=== PATIENT | female | born 1975 | race Hispanic/Latino ===

== ENCOUNTER 2017-07-13 15:50 | Emergency (ER) | payer SELFPAY ==
[2017-07-13] MEDS ORDERED: FAMOTIDINE 20MG TAB 20 MG TAB ONE (16:15)
[2017-07-13] MEDS ORDERED: HYOSCYAMINE SULFATE 0.125 MG TAB.SUBL SL ONE (16:15)
[2017-07-13 16:26] LABS: APPEARANCE,URINE Clear (CLEAR); BILIRUBIN,URINE Negative (NEGATIVE); COLOR,URINE Yellow (YELLOW); GLUCOSE, URINE (UA) Negative (NEGATIVE); KETONES,URINE Negative (NEGATIVE); LEUKOCYTE ESTERASE ,URINE Moderate (NEGATIVE); NITRATE,URINE Negative (NEGATIVE); OCCULT BLOOD,URINE Trace (NEGATIVE); PH,URINE 6.5 (5.0-8.0); PROTEIN,URINE Negative (NEGATIVE)
[2017-07-13 16:34] LABS: HCG,QUAL RESULT NEGATIVE (NEGATIVE)
[2017-07-13 16:41] LABS: BASOPHILS % (AUTO) 0.3 % (0.0-5.0); EOSINOPHILS % (AUTO) 1.4 % (0.0-8.0); HEMATOCRIT 38.7 % (36-48); LYMPHOCYTES % (AUTO) 31.9 % (21.0-51.0); MEAN CORPUSCULAR HEMOGLOBIN 31.3 pg (27.0-33.0); MEAN CORPUSCULAR HGB CONC 34.1 g/dL (32.0-36.0); MEAN CORPUSCULAR VOLUME 91.6 fL (79-99); MONOCYTES % (AUTO) 6.2 % (3.0-13.0); NEUTROPHILS % (AUTO) 60.2 % (40.0-77.0); PLATELET COUNT (AUTO) 335 K/uL (130-400); RED BLOOD CELL COUNT(AUTO) 4.23 MIL/uL (4.00-5.50); RED CELL DISTRIBUTION WIDTH 13.9 % (11.0-15.5); WHITE BLOOD COUNT (AUTO) 10.5 K/uL (4.8-10.8)
[2017-07-13 16:58] LABS: BACTERIA,URINE Few /HPF (None Seen); MUCUS,URINE Few LPF (None Seen); SQUAMOUS EPITHELIAL CELL,UR Few /LPF (0-2)
[2017-07-13 17:14] LABS: CREATININE 0.8 mg/dL (0.5-1.5); POTASSIUM 3.6 mmol/L (3.5-5.1)
[2017-07-13 17:19] LABS: ALBUMIN 3.3 g/dL (3.5-5.0); BILIRUBIN,TOTAL 0.2 mg/dL (0.2-1.0); TOTAL PROTEIN, SERUM 7.6 g/dL (6.0-8.3)
== END 2017-07-13 17:41 | disposition home or self-care (01) ==
LOC: EDH 15:50
DX: K29.70 Gastritis, unspecified, without bleeding (principal); Z72.0 Tobacco use; Z90.49 Acquired absence of other specified parts of digestive tract
CPT/HCPCS: 36415; 80053; 81001; 81025; 83690; 85025

== ENCOUNTER 2018-11-04 17:45 | Emergency (ER) | payer OTHER ==
[2018-11-04 18:47] LABS: BASOPHILS % (AUTO) 0.5 % (0.0-5.0); EOSINOPHILS % (AUTO) 0.6 % (0.0-8.0); HEMATOCRIT 40.3 % (36-48); LYMPHOCYTES % (AUTO) 22.3 % (21.0-51.0); MEAN CORPUSCULAR HEMOGLOBIN 31.9 pg (27.0-33.0); MEAN CORPUSCULAR HGB CONC 33.8 g/dL (32.0-36.0); MEAN CORPUSCULAR VOLUME 94.2 fL (79-99); MONOCYTES % (AUTO) 6.6 % (3.0-13.0); PLATELET COUNT (AUTO) 295 K/uL (130-400); RED BLOOD CELL COUNT(AUTO) 4.27 MIL/uL (4.00-5.50); RED CELL DISTRIBUTION WIDTH 13.3 % (11.0-15.5); WHITE BLOOD COUNT (AUTO) 11.2 K/uL (4.8-10.8)
[2018-11-04 18:55] LABS: CREATININE 0.7 mg/dL (0.5-1.5); POTASSIUM 3.4 mmol/L (3.5-5.1)
[2018-11-04 19:00] LABS: ALBUMIN 3.5 g/dL (3.5-5.0); BILIRUBIN,TOTAL 0.4 mg/dL (0.2-1.0); TOTAL PROTEIN, SERUM 7.4 g/dL (6.0-8.3)
[2018-11-04] MEDS ORDERED: FAMOTIDINE/PF 20 MG/2 ML VIAL IV ONE (19:00)
[2018-11-04] MEDS ORDERED: ONDANSETRON HCL 4 MG/2 ML VIAL ONE (19:00)
[2018-11-04] MEDS ORDERED: SODIUM CHLORIDE 0.9% 1000ML 1,000 ML IV ONE (19:00)
== END 2018-11-04 20:20 | disposition home or self-care (01) ==
LOC: EDH 17:45
DX: K21.9 Gastro-esophageal reflux disease without esophagitis (principal); Z90.49 Acquired absence of other specified parts of digestive tract; Z72.0 Tobacco use
CPT/HCPCS: 36415; 80053; 83690; 84484; 85025; 93005; 96374; 96375; 99285; J2405; J3490; J7030

== ENCOUNTER 2022-08-27 05:34 | Observation (INO) | payer OTHER ==
[2022-08-23 13:40] LABS: BASOPHILS % (AUTO) 0.6 % (0.0-5.0); EOSINOPHILS % (AUTO) 1.7 % (0.0-8.0); HEMATOCRIT 40.9 % (36-48); LYMPHOCYTES % (AUTO) 26.4 % (21.0-51.0); MEAN CORPUSCULAR HEMOGLOBIN 30.4 pg (27.0-33.0); MEAN CORPUSCULAR HGB CONC 32.5 g/dL (32.0-36.0); MEAN CORPUSCULAR VOLUME 93.6 fL (79-99); NEUTROPHILS % (AUTO) 64.9 % (40.0-77.0); PLATELET COUNT (AUTO) 349 K/uL (130-400); RED BLOOD CELL COUNT(AUTO) 4.37 MIL/uL (4.00-5.50); RED CELL DISTRIBUTION WIDTH 12.9 % (11.0-15.5); WHITE BLOOD COUNT (AUTO) 10.3 K/uL (4.8-10.8)
[2022-08-23 14:00] LABS: APPEARANCE,URINE CLOUDY (CLEAR); BILIRUBIN,URINE NEGATIVE (NEGATIVE); COLOR,URINE LIGHT-YELLOW (YELLOW); GLUCOSE, URINE (UA) NEGATIVE (NEGATIVE); KETONES,URINE NEGATIVE (NEGATIVE); LEUKOCYTE ESTERASE ,URINE NEGATIVE Leu/uL (NEGATIVE); NITRATE,URINE NEGATIVE (NEGATIVE); OCCULT BLOOD,URINE NEGATIVE (NEGATIVE); PH,URINE 7.5 (5.0-8.0); PROTEIN,URINE NEGATIVE (NEGATIVE); UROBILINOGEN,URINE 0.2 mg/dL (0.2-1.0)
[2022-08-23 14:04] LABS: BACTERIA,URINE RARE /HPF (None Seen); MUCUS,URINE RARE LPF (None Seen); SQUAMOUS EPITHELIAL CELL,UR FEW /HPF (0-2)
[2022-08-23 18:00] VITALS: BP 119/68
[2022-08-27] VITALS (26 sets, daily range): BP systolic 103–148; BP diastolic 60–89
[~2022-08-27] VITALS: Ht 154.9 cm; Wt 71.8 kg
[2022-08-27] MEDS ORDERED: LACTATED RINGERS 1000ML 1,000 ML IV ONE (05:55)
[2022-08-27] MEDS ORDERED: CEFAZOLIN SODIUM 2 GM VIAL ONE (06:10)
[2022-08-27] MEDS ORDERED: MIDAZOLAM HCL 1 MG/ML 2ML VIAL ONE ×2 (07:04→10:02)
[2022-08-27] MEDS ORDERED: SUCCINYLCHOLINE 200MG/10ML SYR ONE (07:04)
[2022-08-27] MEDS ORDERED: PROPOFOL 10 MG/ML 20ML VIAL IV ONE (07:04)
[2022-08-27] MEDS ORDERED: ROCURONIUM 10MG/1ML SYR 10 MG/ML ML ONE (07:05)
[2022-08-27] MEDS ORDERED: FENTANYL CITRATE PF 50 MCG/1 ML 2ML VIAL ONE (07:05)
[2022-08-27] MEDS ORDERED: CEFAZOLIN SODIUM 2 GM VIAL IVPB ONE (07:15)
[2022-08-27] MEDS ORDERED: NEOSTIGMINE 5MG/5ML SYR IV ONE (09:36)
[2022-08-27] MEDS ORDERED: GLYCOPYRROLATE 1 MG/5 ML SYRINGE ONE (09:36)
[2022-08-27] MEDS ORDERED: MEPERIDINE-PF 25 MG/ML SYG ONE ×3 (09:58→10:57)
[2022-08-27] MEDS ORDERED: ONDANSETRON 4MG INJ ONE (09:58)
[2022-08-27] MEDS ORDERED: KETOROLAC 30MG VIAL (30MG/ML) ONE (10:50)
[2022-08-27] MEDS ORDERED: PROMETHAZINE HCL 25 MG/ML 1ML AMPULE IM ONE (10:58)
[2022-08-27] MEDS ORDERED: ACETAMINOPHEN WITH CODEINE 1 TAB TAB PO PRN (12:30)
[2022-08-27] MEDS ORDERED: IBUPROFEN 600 MG TABLET PO PRN ×2 (12:30→12:45)
[2022-08-27] MEDS ORDERED: MEPERIDINE-PF 75 MG/ML SYG IM PRN ×2 (12:30→12:45)
[2022-08-27] MEDS ORDERED: SIMETHICONE 80 MG TAB.CHEW PO PRN ×2 (12:30→12:45)
[2022-08-27] MEDS ORDERED: PROMETHAZINE HCL 25 MG/ML 1ML AMPULE IM PRN ×4 (12:30→12:45)
[2022-08-27] MEDS ORDERED: DOCUSATE SODIUM 100 MG CAP PO PRN ×2 (12:30→12:45)
[2022-08-27] MEDS ORDERED: ONDANSETRON 4MG INJ IVP PRN ×2 (12:30→12:45)
[2022-08-27] MEDS ORDERED: BISACODYL 10 MG SUPP.RECT RC PRN ×2 (12:30→12:45)
[2022-08-27] MEDS ORDERED: DEXTROSE 5 %-0.45 % NACL 1,000 ML IV PRN (12:30)
[2022-08-27] MEDS: ACETAMINOPHEN WITH CODEINE 1 TAB TAB PO PRN (18:19)
[2022-08-27] MEDS: DEXTROSE 5 %-0.45 % NACL 1,000 ML IV PRN (18:19)
[2022-08-28] MEDS: DEXTROSE 5 %-0.45 % NACL 1,000 ML IV PRN (00:44)
[2022-08-28] MEDS ORDERED: IBUPROFEN 800 MG TAB PO PRN (02:00)
[2022-08-28] MEDS ORDERED: HYDROCODONE/ACETAMINOPHEN 5/325 MG TAB PO PRN (02:00)
[2022-08-28] MEDS ORDERED: ACETAMINOPHEN WITH CODEINE 1 TAB TAB PO PRN (02:00)
[2022-08-28 02:57] VITALS: BP 97/58
[2022-08-28] MEDS: ACETAMINOPHEN WITH CODEINE 1 TAB TAB PO PRN (05:57)
[2022-08-28 06:32] LABS: MEAN CORPUSCULAR HEMOGLOBIN 30.1 pg (27.0-33.0); MEAN CORPUSCULAR HGB CONC 32.2 g/dL (32.0-36.0); MEAN CORPUSCULAR VOLUME 93.3 fL (79-99); RED BLOOD CELL COUNT(AUTO) 3.86 MIL/uL (4.00-5.50); RED CELL DISTRIBUTION WIDTH 13.1 % (11.0-15.5); WHITE BLOOD COUNT (AUTO) 15.3 K/uL (4.8-10.8)
[2022-08-28 07:24] VITALS: BP 107/66
[2022-08-28] MEDS ORDERED: ACET-2079 PO (08:43)
== END 2022-08-28 10:50 | disposition home or self-care (01) ==
LOC: DAH 05:34 → WSH 05:35 → DAH 05:36 → WSH 12:24 → UNDOADMOB 12:24 → DAH 12:24 → WSH 12:26 → UNDOADMOB 12:26 → DAH 12:36
PROVIDERS: ADMIT Obstetrics & Gynecology; ATTEND Obstetrics & Gynecology
DX: D25.9 Leiomyoma of uterus, unspecified (principal); Z20.822 Contact with and (suspected) exposure to COVID-19; N92.1 Excessive and frequent menstruation with irregular cycle; K46.9 Unspecified abdominal hernia without obstruction or gangrene; E11.9 Type 2 diabetes mellitus without complications; E66.9 Obesity, unspecified; Z79.899 Other long term (current) drug therapy
CPT/HCPCS: 84703; 85025; 86850 ×2; 86900 ×2; 86901 ×2; 87426; 81001; 36415 ×3; 58552; 57268; 96374; 96372; 85027; A6260; G0378 ×23; A4663; J7030; A4351; A4215 ×2; J7120; J3010; J0330; J3490; J2710; J2550 ×2; J2250 ×2; J2704; J2405 ×2; J1885; J2175 ×4; J0690 ×2; A4649 ×3; C1769 ×2; A4223; A4222; A4221; A4600; A4510